=== PATIENT | female | born 1985 ===

== ENCOUNTER → 2021-10-08 15:15 | Outpatient (BNVA) | payer MEDICAID, SELFPAY | PROVIDERS: Family Provider Obstetrics & Gynecology; PCP Obstetrics & Gynecology; Visit Provider Emergency Medicine | DX: Z20.822 Contact with and (suspected) exposure to COVID-19 (principal); R05.9 Cough, unspecified; R09.02 Hypoxemia | CPT/HCPCS: 87635 ==